=== PATIENT | male | born 1960 | race African-American/Black ===

== ENCOUNTER 2018-10-05 04:38 | Observation (INO) | payer OTHER ==
[~2018-10-05] VITALS: Ht 182.9 cm; Wt 95.2 kg
[2018-10-05] MEDS ORDERED: VASOTEC (04:49)
[2018-10-05] MEDS ORDERED: LOSARTAN (04:49)
[2018-10-05] MEDS ORDERED: METFORMIN (04:49)
[2018-10-05 06:09] LABS: BASOPHILS ABSOLUTE AUTO 0.05 K/mm3 (0.00-0.23); BASOPHILS PERCENT AUTO 1 % (0-2); EOSINOPHILS ABSOLUTE AUTO 0.87 K/mm3 (0.00-0.68); EOSINOPHILS PERCENT AUTO 20 % (0-6); Hematocrit 44.2 % (37.0-53.0); Hemoglobin 14.3 g/dL (13.5-17.5); IMMATURE GRAN ABSOLUTE AUTO 0.01 K/mm3 (0.00-0.10); IMMATURE GRAN PERCENT AUTO 0 % (0-1); LYMPHOCYTES ABSOLUTE AUTO 1.08 K/mm3 (0.84-5.20); LYMPHOCYTES PERCENT AUTO 25 % (21-46); MONOCYTES ABSOLUTE AUTO 0.55 K/mm3 (0.16-1.47); MONOCYTES PERCENT AUTO 13 % (4-13); Mean Corpuscular HGB 30.3 pg (26.0-34.0); Mean Corpuscular HGB Conc 32.4 g/dL (31.5-36.5); Mean Corpuscular Volume 94 fL (80-100); Mean Platelet Volume 11.3 fL (9.1-12.4); NEUTROPHILS ABSOLUTE AUTO 1.84 K/mm3 (1.96-9.15); NEUTROPHILS PERCENT AUTO 42 % (41-73); Platelet Count 147 K/mm3 (150-400); RDW Coefficient Variation 12.4 % (11.7-14.2); RDW Standard Deviation 43.4 fL (35.1-46.3); Red Blood Cell Count 4.72 M/mm3 (4.30-5.90)
[2018-10-05 06:26] LABS: Albumin, Blood 3.7 g/dL (3.4-5.0); Albumin/Globulin Ratio 1.1 (0.8-1.8); Bilirubin, Total 0.8 mg/dL (0.1-1.0); Bun/Creatinine Ratio 13.5 (12.0-20.0); Creatinine, Blood 1.33 mg/dL (0.60-1.20); Globulin, Blood 3.4 g/dL (2.2-4.0); Potassium, Blood 3.8 mmol/L (3.5-5.5); Total Protein, Blood 7.1 g/dL (6.4-8.2)
[2018-10-05] MEDS ORDERED: AZIT500 PO (12:05)
[2018-10-05] MEDS ORDERED: BENADRYL25 MG PO (12:05)
[2018-10-05] MEDS ORDERED: Prednisone10 MG PO (12:06)
--- NOTE | 2018-10-05 12:07 | NUR ---
PT PCP DR BUSBY IN [place] PER ER NURSE, RX FAXED TO [facility]
== END 2018-10-05 12:18 | disposition home or self-care (01) ==
LOC: ER 04:38 → ERHOLD 04:39
PROVIDERS: Emergency Medicine; ADMIT Internal Medicine
DX: J39.2 Other diseases of pharynx (principal); I10 Essential (primary) hypertension; E11.9 Type 2 diabetes mellitus without complications; Z79.899 Other long term (current) drug therapy
CPT/HCPCS: 71045; 80053; 82947; 85025; 93005; 93010; 96372-59; 96374; 96375; 96376; 99285-25; G0378; J0171; J1100; J1200; J1650; J2930